=== PATIENT | male | born 1985 | race Caucasian/White ===

== ENCOUNTER 2019-03-16 16:04 | Emergency (ER) | payer BC, OTHER ==
[2019-03-16 17:20] LABS: Absolute Lymphocytes (CBC) 2.3 K/uL (0.7-4.9); Basophils % 0.9 % (0-1.3); Hematocrit 41.9 % (39.6-49.0); Lymphocytes % 29.5 % (15.3-44.8); MPV 8.3 fL (7.6-11.3); RBC Red Blood Cell Count 4.79 M/uL (4.33-5.43)
--- NOTE | 2019-03-16 17:23 | RAD REPORT ---
EXAM DESCRIPTION: CT - Head Brain Wo Cont - 03/16/2019 5:00 pm CLINICAL HISTORY: Headache COMPARISON: 2008 TECHNIQUE: Computed axial tomography of the head was obtained. IV contrast was not requested. All CT scans are performed using dose optimization technique as appropriate and may include automated exposure control or mA/KV adjustment according to patient size. FINDINGS: An intracranial bleed is not seen . The ventricles are normal in caliber. No extra-axial fluid collection is noted. Fluid within the sinuses/ mastoids is not seen. IMPRESSION: No acute intracranial abnormality is seen. If patient's symptoms persist MRI of the bra in would be recommended.
[2019-03-16 17:36] LABS: ALT/SGPT 40 U/L (12-78); AST/SGOT 18 U/L (15-37); Alkaline Phosphatase 77 U/L (45-117); BUN Blood Urea Nitrogen 9 mg/dL (7-18); Bicarbonate 30 mmol/L (21-32); Bilirubin Total 0.7 mg/dL (0.2-1.0); Glucose Level 91 mg/dL (74-106); Potassium 3.6 mmol/L (3.5-5.1); Protein, Total 8.1 g/dL (6.4-8.2); Sodium Level 141 mmol/L (136-145)
[2019-03-16] MEDS ORDERED: METOCLOPRAMIDE 10 MG/2mL INJ ONE (17:36)
[2019-03-16] MEDS ORDERED: NA CHLORIDE 0.9% 1,000 ML ONE (17:37)
[2019-03-16] MEDS ORDERED: KETOROLAC 30 MG/ML INJ ONE (17:37)
[2019-03-16] MEDS ORDERED: DIPHENHYDRAMINE 50 MG/ML VIAL ONE (17:37)
--- NOTE | 2019-03-16 19:44 | EDPHYS ---
Physician Documentation [facility] Name: Taz Mcgill Age: 34 yrs Sex: Male : 1985 Arrival Date: 03/16/2019 Time: 16:09 Bed 15 Private MD: ED Physician Cody Dupree HPI: 03/16 17:16 This 34 yrs old Male presents to ER via Ambulatory with complaints of Fever, pm1 Rash. 17:16 The patient reports fever, that was measured at 100.3 degrees Fahrenheit, this AM. pm1 Patient with complaints of fever and headache onset 1 month ago. Flu swab and strep swab were negative at that time. Later developed a rash that was diagnosed as Coxsackie that resolved. Had labs drawn two weeks ago and yesterday. Main complaint that is bothering the patient is his bilateral eye redness and photophobia that has been ongoing for 2 weeks. He saw foreclosure paralegal 4 days ago and was told that his eyes are fine and that they could be treated with steroid drops but MD decided to withhold them until further workup by PCP. Currently with a small rash is on bilateral forearms that looks the same as his prior rash. Historical: - Allergies: 16:14 No Known Allergies; aj1 - Home Meds: 16:14 None [Active]; aj1 - PMHx: 16:14 Myocardial infarction; aj1 - PSHx: 16:14 rotator cuff repair; aj1 - Immunization history:: Flu vaccine is up to date. - Social history:: Smoking status: Patient/guardian denies using tobacco. - Ebola Screening: : Patient denies travel to an Ebola-affected area in the 21 days before illness onset. ROS: 17:16 Eyes: Negative for injury, pain, redness, and discharge, ENT: Negative for injury, pm1 pain, and discharge, Neck: Negative for injury, pain, and swelling, Cardiovascular: Negative for chest pain, palpitations, and edema, Respiratory: Negative for shortness of breath, cough, wheezing, and pleuritic chest pain. 17:16 Abdomen/GI: Negative for abdominal pain, nausea, vomiting, diarrhea, and constipation, Back: Negative for injury and pain, MS/Extremity: Negative for injury and deformity. 17:16 Constitutional: Positive for fever, Negative for body aches, poor PO intake. 17:16 Neuro: Positive for headache, Negative for numbness, tingling. 17:16 Skin: Positive for rash, of the right arm and left arm. pm1 Exam: 17:16 Head/Face: Normocephalic, atraumatic. ENT: Nares patent. No nasal discharge, no pm1 septal abnormalities noted. Tympanic membranes are normal and external auditory canals are clear. Oropharynx with no redness, swelling, or masses, exudates, or evidence of obstruction, uvula midline. Mucous membranes moist. Neck: Trachea midline, no thyromegaly or masses palpated, and no cervical lymphadenopathy. Supple, full range of motion without nuchal rigidity, or vertebral point tenderness. No Meningismus. Chest/axilla: Normal chest wall appearance and motion. Nontender with no deformity. No lesions are appreciated. Cardiovascular: Regular rate and rhythm with a normal S1 and S2. No gallops, murmurs, or rubs. Normal PMI, no JVD. No pulse deficits. Respiratory: Lungs have equal breath sounds bilaterally, clear to auscultation and percussion. No rales, rhonchi or wheezes noted. No increased work of breathing, no retractions or nasal flaring. 17:16 Abdomen/GI: Soft, non-tender, with normal bowel sounds. No distension or tympany. No guarding or rebound. No evidence of tenderness throughout. Back: No spinal tenderness. No costovertebral tenderness. Full range of motion. 17:16 MS/ Extremity: Pulses equal, no cyanosis. Neurovascular intact. Full, normal range of motion. 17:16 Constitutional: The patient appears in no acute distress, alert, awake, comfortable, non-diaphoretic, non-toxic, well developed, well hydrated, well groomed, well nourished. 17:16 Eyes: Periorbital structures: appear normal, Pupils: no acute changes, Extraocular movements: no acute changes, Conjunctiva: injected, bilaterally, Lids and lashes: appear normal, bilaterally. 17:16 Skin: Appearance: normal except for affected area, on the bilateral dorsal aspect of forearms, a few scattered papules/pustules with some likely erupted/scratched and crusted. 17:16 Neuro: Orientation: is normal, Mentation: is normal, Motor: is normal, moves all fours, Sensation: is normal, no obvious gross deficits, Gait: is steady, at a normal pace, without difficulty. Vital Signs: 16:14 BP 139 / 103; Pulse 86; Resp 18; Temp 97.7; Pulse Ox 98% on R/A; Weight 92.99 kg (R); aj1 Height 5 ft. 8 in. (172.72 cm) (R); 17:14 BP 124 / 97; Pulse 70; Resp 16; Pulse Ox 100% ; rb1 18:14 BP 124 / 87; Pulse 68; Resp 17; Pulse Ox 100% on R/A; rb1 19:19 BP 115 / 74; jd2 19:30 BP 116 / 89; Pulse 79; Resp 16; Pulse Ox 98% on R/A; jb4 16:14 Body Mass Index 31.17 (92.99 kg, 172.72 cm) aj1 MDM: 16:19 Patient medically screened. pm1 19:42 Data reviewed: vital signs. Data interpreted: Pulse oximetry: on room air is 100 %. pm1 Interpretation: normal. Counseling: I had a detailed discussion with the patient and/or guardian regarding: the historical points, exam findings, and any diagnostic results supporting the discharge/admit diagnosis, lab results, radiology results, the need for outpatient follow up, to return to the emergency department if symptoms worsen or persist or if there are any questions or concerns that arise at home. 03/16 16:37 Order name: CBC with Diff; Complete Time: 17:26 pm1 03/16 16:37 Order name: CMP; Complete Time: 17:46 pm1 03/16 16:37 Order name: Flu; Complete Time: 17:46 pm1 03/16 16:37 Order name: Strep; Complete Time: 17:46 pm1 03/16 16:58 Order name: [place] Screen Profile; Complete Time: 18:07 pm1 03/16 16:58 Order name: Procalcitonin; Complete Time: 19:31 pm1 03/16 16:37 Order name: CT Head Brain wo Cont; Complete Time: 17:46 pm1 03/16 17:34 Order name: Throat Culture EDMS Administered Medications: 17:46 Not Given (Physician Discretion): TORadol 30 mg IVP once pm1 17:55 Drug: NS 0.9% 1000 ml Route: IV; Rate: 1000 ml; Site: right antecubital; rb1 19:00 Follow up: IV Status: Completed infusion rb1 17:55 Drug: Reglan 10 mg Route: IVP; Site: right antecubital; rb1 18:10 Follow up: Response: No adverse reaction rb1 17:55 Drug: Benadryl 12.5 mg Route: IVP; Site: right antecubital; rb1 18:10 Follow up: Response: No adverse reaction rb1 17:55 Drug: TORadol - Ketorolac 15 mg Route: IVP; Site: right antecubital; rb1 18:10 Follow up: Response: No adverse reaction rb1 Disposition: 03/17 07:16 Co-signature as Attending Physician, Cody Dupree MD. rn Disposition: 03/16/19 19:43 Discharged to Home. Impression: Rash and other nonspecific skin eruption, Headache. - Condition is Stable. - Discharge Instructions: General Headache Without Cause, Rash. - Prescriptions for Fiorinal 50- 325-40 mg Oral Capsule - take 1 capsule by ORAL route every 4 hours As needed - not to exceed 6 capsules per day; 20 capsule. - Medication Reconciliation Form, Thank You Letter, Antibiotic Education, Prescription Opioid Use form. - Follow up: Emergency Department; When: As needed; Reason: Worsening of condition. Follow up: Private Physician; When: 2 - 3 days; Reason: Recheck today's complaints, Continuance of care, Re-evaluation by your physician. - Problem is new. - Symptoms have improved. Signatures: Dispatcher [employer] EDMS Clarisse Sanford RN RN aj1 Cody Dupree MD MD rn Barber, Rebecca RN RN rb1 Jose Angel Layton, VENKAT 3D DESIGNER pm1 Sreedhar Kumar RN RN jb4 Corrections: (The following items were deleted from the chart) 03/16 19:57 19:43 03/16/2019 19:43 Discharged to Home. Impression: Rash and other nonspecific skin jb4 eruption; Headache. Condition is Stable. Forms are Medication Reconciliation Form, Thank You Letter, Antibiotic Education, Prescription Opioid Use. Follow up: Emergency Department; When: As needed; Reason: Worsening of condition. Follow up: Private Physician; When: 2 - 3 days; Reason: Recheck today's complaints, Continuance of care, Re-evaluation by your physician. Problem is new. Symptoms have improved. pm1 23:11 17:16 Abdomen/GI: Negative for abdominal pain, nausea, vomiting, diarrhea, and pm1 constipation, Back: Negative for injury and pain, MS/Extremity: Negative for injury and deformity, Skin: Negative for injury, rash, and discoloration, pm1
--- NOTE | 2019-03-16 19:44 | ER ---
Nurse's Notes [facility] Name: Taz Mcgill Age: 34 yrs Sex: Male : 1985 Arrival Date: 03/16/2019 Time: 16:09 Bed 15 Private MD: Diagnosis: Rash and other nonspecific skin eruption;Headache Presentation: 03/16 16:09 Presenting complaint: Patient states: "I went to [facility] a month ago aj1 with fever and headache. They did a flu swab and a strep swab and it was negative and then carlos alberto I got a rash and they said that it was hand, foot, and mouth." Reports that he never felt like he had gotten better after that. Reports that he started having blurred vision 2 weeks ago. Reports that he had labs drawn 2 weeks ago and then again yesterday. Now his headaches are back and his fever was 100.3 earlier today. Sclera appear reddened bilaterally. Tearing noted to both eyes. Patient appears pale. Transition of care: patient was not received from another setting of care. Onset of symptoms was February 14, 2019. Risk Assessment: Do you want to hurt yourself or someone else? Patient reports no desire to harm self or others. Initial Sepsis Screen: Does the patient meet any 2 criteria? No. Patient's initial sepsis screen is negative. Does the patient have a suspected source of infection? No. Patient's initial sepsis screen is negative. Care prior to arrival: None. 16:09 Method Of Arrival: Ambulatory aj1 16:09 Acuity: RENNY 3 aj1 Triage Assessment: 16:14 General: Appears in no apparent distress. uncomfortable, Behavior is calm, cooperative, aj1 appropriate for age. Pain: Complains of pain in top of head, right adventist and left adventist Pain currently is 5 out of 10 on a pain scale. Neuro: Level of Consciousness is awake, alert, obeys commands, Oriented to person, place, time, situation, Speech is normal, Facial symmetry appears normal, Reports headache photophobia. Cardiovascular: Patient's skin is warm and dry. Respiratory: Airway is patent Respiratory effort is even, unlabored, Respiratory pattern is regular, symmetrical. Historical: - Allergies: 16:14 No Known Allergies; aj1 - Home Meds: 16:14 None [Active]; aj1 - PMHx: 16:14 Myocardial infarction; aj1 - PSHx: 16:14 rotator cuff repair; aj1 - Immunization history:: Flu vaccine is up to date. - Social history:: Smoking status: Patient/guardian denies using tobacco. - Ebola Screening: : Patient denies travel to an Ebola-affected area in the 21 days before illness onset. Screenin:20 Abuse screen: Denies threats or abuse. Nutritional screening: No deficits noted. rb1 Tuberculosis screening: No symptoms or risk factors identified. Fall Risk None identified. Assessment: 16:20 General: Appears uncomfortable, Behavior is calm, cooperative, Reports fever for. rb1 Neuro: Level of Consciousness is awake, alert, obeys commands, Oriented to person, place, time, situation, Reports blurred vision since x 2 weeks. Cardiovascular: Capillary refill < 3 seconds is brisk in bilateral fingers. Respiratory: Airway is patent Respiratory effort is even, unlabored, Respiratory pattern is regular, symmetrical. GI: No signs and/or symptoms were reported involving the gastrointestinal system. : No signs and/or symptoms were reported regarding the genitourinary system. EENT: Eyes are tearing on bilateral eyes Sclera/Cornea are reddened in bilateral sclera Reports photophobia. Derm: Skin is pale. Musculoskeletal: Range of motion: intact in all extremities. 17:20 Reassessment: Patient appears in no apparent distress at this time. No changes from rb1 previously documented assessment. 18:14 Reassessment: Patient appears in no apparent distress at this time. Patient and/or rb1 family updated on plan of care and expected duration. Pain level reassessed. Patient is alert, oriented x 3, equal unlabored respirations, skin warm/dry/pink. 19:20 Reassessment: Patient appears in no apparent distress at this time. Patient and/or jb4 family updated on plan of care and expected duration. Pain level reassessed. Patient is alert, oriented x 3, equal unlabored respirations, skin warm/dry/pink. Patient denies pain at this time. 19:55 Reassessment: Patient appears in no apparent distress at this time. Patient and/or jb4 family updated on plan of care and expected duration. Pain level reassessed. Patient is alert, oriented x 3, equal unlabored respirations, skin warm/dry/pink. PT and verbalized understanding of d/c and follow up instructions. Ambulated out of ED together with steady gait. Vital Signs: 16:14 BP 139 / 103; Pulse 86; Resp 18; Temp 97.7; Pulse Ox 98% on R/A; Weight 92.99 kg (R); aj1 Height 5 ft. 8 in. (172.72 cm) (R); 17:14 BP 124 / 97; Pulse 70; Resp 16; Pulse Ox 100% ; rb1 18:14 BP 124 / 87; Pulse 68; Resp 17; Pulse Ox 100% on R/A; rb1 19:19 BP 115 / 74; jd2 19:30 BP 116 / 89; Pulse 79; Resp 16; Pulse Ox 98% on R/A; jb4 16:14 Body Mass Index 31.17 (92.99 kg, 172.72 cm) aj1 ED Course: 16:09 Patient arrived in ED. aj1 16:13 Triage completed. aj1 16:14 Arm band placed on Patient placed in an exam room. aj1 16:18 Jose Angel Layton NP is PHCP. pm1 16:18 Cody Dupree MD is Attending Physician. pm1 16:20 Patient has correct armband on for positive identification. Bed in low position. Call rb1 light in reach. Side rails up X 1. Pulse ox on. NIBP on. 16:36 Claudette Du, JUN is Primary Nurse. rb1 17:00 CT Head Brain wo Cont In Process Unspecified. EDMS 17:10 Inserted saline lock: 22 gauge in right forearm, using aseptic technique. Blood bp collected. 18:54 Report given to JUN Walker. rb1 19:30 No provider procedures requiring assistance completed. IV discontinued, intact, jb4 bleeding controlled, No redness/swelling at site. Pressure dressing applied. Administered Medications: 17:46 Not Given (Physician Discretion): TORadol 30 mg IVP once pm1 17:55 Drug: NS 0.9% 1000 ml Route: IV; Rate: 1000 ml; Site: right antecubital; rb1 19:00 Follow up: IV Status: Completed infusion rb1 17:55 Drug: Reglan 10 mg Route: IVP; Site: right antecubital; rb1 18:10 Follow up: Response: No adverse reaction rb1 17:55 Drug: Benadryl 12.5 mg Route: IVP; Site: right antecubital; rb1 18:10 Follow up: Response: No adverse reaction rb1 17:55 Drug: TORadol - Ketorolac 15 mg Route: IVP; Site: right antecubital; rb1 18:10 Follow up: Response: No adverse reaction rb1 Outcome: 19:43 Discharge ordered by MD. pm1 19:56 Discharged to home ambulatory, with family. jb4 19:56 Condition: stable 19:56 Discharge instructions given to patient, significant other, Instructed on discharge instructions, follow up and referral plans. medication usage, Demonstrated understanding of instructions, follow-up care, medications, Prescriptions given X 1. 19:57 Patient left the ED. jb4 Signatures: Dispatcher [employer] EDMS Clarisse Sanford RN RN aj1 Claudette Du RN RN rb1 Jose Angel Layton, VENKAT COMPOUNDING SCALER pm1 Maryana Painting jd2 Sreedhar Kumar RN RN jb4 Marcos Garcia RN RN bp Corrections: (The following items were deleted from the chart) 16:15 16:09 Presenting complaint: Patient states: "I went to [facility] a month aj1 ago with fever and headache. They did a flu swab and a strep swab and it was negative and then carlos alberto I got a rash and they said that it was hand, foot, and mouth." Reports that he never felt like he had gotten better after that. Reports that he started having blurred vision 2 weeks ago. Reports that he had labs drawn 2 weeks ago and then again yesterday. Now his headaches are back and his fever was 100.3 earlier today. Sclera appear reddened bilaterally. Tearing noted to both eyes aj1 18:44 16:20 EENT: Eyes are tearing on bilateral eyes Sclera/Cornea are reddened in bilateral rb1 sclera rb1
[2019-03-16 20:29] VITALS: TEMP 97.7
[2019-03-16 20:33] VITALS: BP 116/89; O2SAT 98
== END 2019-03-16 19:57 | disposition home or self-care (01) ==
LOC: ER 16:04
DX: R21 Rash and other nonspecific skin eruption (principal); R51 Headache; I25.2 Old myocardial infarction
CPT/HCPCS: 96361; 87070; 85025; 36415; 86308; 87081; 80053; 84145; 87804 ×2; 70450; 96375; 96374; 99284; J2765; J7030